=== PATIENT | female | born 1955 | race Caucasian/White ===

== ENCOUNTER → 2018-04-25 12:43 | Outpatient (POV) | payer OTHER, SELFPAY ==
--- NOTE | 2018-04-25 17:15 | [facility].PMCON ---
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 Denny is a 62 year old female with a long history of chronic pain. She is noted to have degenerative disc disease lumbar spine with radiculopathy as well as spondylosis. Multiple attempts at pain management were undertaken including oral medications, epidural injections, physical therapy etc. She underwent a pain stimulator trial which was successful with significant improvement in her pain and she is referred now for placement of a pain stimulator system CC: Nino Wong MD Back pain [facility] History Comment: Illnesses-hypertension, coronary artery disease, depression, chronic back pain with degenerative disc disease and spondylosis Comment: Operations-cholecystectomy, appendectomy, CABG 2008, angioplasty with stent since CABG. Review of Systems - Review of Systems Review of systems:: pertinent systems reviewed and negative unless documented below Objective Comments: Healthy-appearing white female in no distress - Routine Chest/Breast/Axilla Exam Comments: There - *Routine Cardiovascular Exam Present: RRR - *Routine Abdominal Exam Present: soft
--- NOTE | 2018-04-25 17:18 | P.CONS_ITS ---
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 Denny is a 62 year old female with a long history of chronic pain. She is noted to have degenerative disc disease lumbar spine with radiculopathy as well as spondylosis. Multiple attempts at pain management were undertaken including oral medications, epidural injections, physical therapy etc. She underwent a pain stimulator trial which was successful with significant improvement in her pain and she is referred now for placement of a pain stimulator system CC: Nino Wong MD Back pain [facility] History Comment: Illnesses-hypertension, coronary artery disease, depression, chronic back pain with degenerative disc disease and spondylosis Comment: Operations-cholecystectomy, appendectomy, CABG 2008, angioplasty with stent since CABG. Review of Systems - Review of Systems Review of systems:: pertinent systems reviewed and negative unless documented below Objective Comments: Healthy-appearing white female in no distress - Routine Chest/Breast/Axilla Exam Comments: There - *Routine Cardiovascular Exam Present: RRR - *Routine Abdominal Exam Present: soft
== END ==
PROVIDERS: Visit Provider Surgery
DX: M51.16 Intervertebral disc disorders with radiculopathy, lumbar region (principal); M47.896 Other spondylosis, lumbar region
CPT/HCPCS: 99201